=== PATIENT | female | born 1990 | race Caucasian/White ===

== ENCOUNTER 2017-04-25 18:58 | Emergency (ER) | payer BC ==
[~2017-04-25] VITALS: Ht 162.6 cm; Wt 86.6 kg
[~2017-04-25 18:58] MED LIST: ACETAMINOPHEN PO; ALBUTEROL17 GM; ALDACTONE PO; ALLEGRA PO; AMOXICILLIN PO; AMOXICILLIN500 M1 PO; ATIVAN PO; BACTRIM DS TABL1 TA1 PO; CLARINEX-D1 TAB.SR . PO; FAMOTIDINE PO; FIORICET W/CODE1 CAP PO; FLEXERIL PO; FLEXERIL10 MG PO; FLONASE16 GM; GABAPENTIN300 M2 PO; IBUPROFEN PO; IBUPROFEN800 MG PO; LIDOCAINE VISCOU1 ML EXT; LORTAB 7.5-5001 TAB PO; METRONIDAZOLE PO; MIRALAX255 GM PO; NO MEDICATIONS; OCELLA PO; OMEPRAZOLE40 M1 PO; PEPCID PO; PHENERGAN DM1 ML PO; PHENERGAN PO; PREDNISONE PO; PRENATAL1 TA1 PO; PROAIR HFA8.5 GM IH; PROMETHAZINE V118 M1 PO; PROZAC PO; TESSALON200 MG PO; TUSSI-PRES B LIQ5 ML PO; VICODIN 5/1 TAB 5/50 PO; VICODIN 5/500 T1 TAB PO; VISTARIL PO; VITAMIN C1000 M1; VITAMIN D1000 UNI2 PO; YASMIN 28 TABLE1 TAB PO; ZITHROMAX PO; ZOFRAN PO; ZOLOFT100 MG PO; [UNRECOGNIZED DRUG - OTHER]
[2017-04-25 20:13] LABS: URINE SOURCE CLEAN CATCH
[2017-04-25 20:16] LABS: URINE APPEARANCE CLEAR; URINE BILIRUBIN NEG (NEG); URINE BLOOD NEG (NEG); URINE COLOR YELLOW; URINE GLUCOSE NEG (NORM); URINE KETONE NEG (NEG); URINE LEUKOCYTE ESTERASE NEG (NEG); URINE NITRATE NEG (NEG); URINE PROTEIN NEG (NEG); URINE UROBILINOGEN 0.2 MG/DL (NORM)
[2017-04-25 20:17] LABS: MICRO INDICATED? NO
[2017-04-25 20:42] LABS: BASOPHIL# 0.1 X10e3 (0-0.3); BASOPHIL% 0.8 % (0-2.5); EOSINOPHIL# 0.1 X10e3 (0-0.7); EOSINOPHIL% 2.1 % (0.0-7.0); HEMOGLOBIN 13.8 gm/dL (12.0-16.0); LYMPHOCYTE# 2.5 X10e3 (1.0-3.5); LYMPHOCYTE% 35.4 % (17.0-45.0); MEAN CELL VOLUME 92.6 FL (83-96); MEAN CORPUSCULAR HEMOGLOBIN 31.3 PG (28-34); MEAN CORPUSCULAR HGB CONC 33.7 g/dL (30-36); MEAN PLATELET VOLUME 11.1 FL (6.5-11.5); MONOCYTE# 0.6 X10e3 (0-1.0); MONOCYTE% 8.9 % (3.0-12.0); NEUTROPHIL# 3.8 X10e3 (1.5-7.1); NEUTROPHIL% 52.8 % (40-75); PLATELET COUNT 156 X10e3 (140-420); RED BLOOD COUNT 4.42 X10e (3.90-5.30); RED CELL DISTRIBUTION WIDTH 13.3 % (11.0-15.5); WHITE BLOOD COUNT 7.1 X10e3 (4.0-10.5)
[2017-04-25 20:45] LABS: DIFF IND NO
[2017-04-25 20:57] LABS: CALCIUM SERUM 9.1 mg/dL (8.4-10.2); CREATININE SERUM 0.6 mg/dL (0.6-1.4); POTASSIUM 3.9 mmol/L (3.5-5.1)
[2017-04-28 00:57] LABS: CHLAMYDIA TRACH Not Detected (Not Detected); N GONOR Not Detected (Not Detected)
== END 2017-04-25 22:20 | disposition home or self-care (01) ==
LOC: SED 18:58
PROVIDERS: Emergency Medicine
DX: T81.4XXA Infection following a procedure, initial encounter (principal); N72 Inflammatory disease of cervix uteri; J45.909 Unspecified asthma, uncomplicated; F41.9 Anxiety disorder, unspecified; Z88.8 Allergy status to other drugs, medicaments and biological substances
CPT/HCPCS: 36415; 80048; 81003; 82947; 84703; 85025; 87491; 87591; 87808; 96372; 99284; J0696